=== PATIENT | female | born 1965 | race African-American/Black ===

== ENCOUNTER 2021-12-29 12:31 | Emergency (ER) | payer OTHER ==
[2021-12-29 13:16] VITALS: BP 126/55; PULSE 91; RESP 20; TEMP 98.1; BMI 46.5
[2021-12-29] MEDS ORDERED: predniSONE 20 MG TABLET (UD) PO ONE (13:53)
[2021-12-29] MEDS ORDERED: ONDANSETRON *ODT* 4 MG TABLET SL ONE (13:53)
[2021-12-29] MEDS ORDERED: predniSONE 20 MG TABLET (UD) ONE (14:04)
[2021-12-29] MEDS ORDERED: ONDANSETRON *ODT* 4 MG TABLET ONE (14:05)
[2021-12-29] MEDS: ALBUTEROL SO4 2.5/IPRATROPIUM 0.5 INH SOL 3 ML VIAL.NEB. NEB SCH ×4 (14:20→15:46)
[2021-12-29 16:10] LABS: BASO % 0.3 % (0-2.0); EOS % 1.3 % (0-4.5); HEMOGLOBIN 12.7 GM/dL (10.7-15.3); LYMPH % 29.2 % (8-40); MCH 27.1 pg (25.7-33.7); MCHC 32.6 g/dl (32.0-36.0); MEAN PLT VOLUME 7.3 fl (7.5-11.1); MONO % 4.4 % (3.8-10.2); NEUT % 64.8 % (42.8-82.8); PLATELET COUNT 283 10^3/uL (134-434); RDW 14.5 % (11.6-15.6)
[2021-12-29 16:32] LABS: CALCIUM 8.8 mg/dL (8.5-10.1)
[2021-12-29 16:33] LABS: ALBUMIN 3.8 g/dl (3.4-5.0); MAGNESIUM 1.8 mg/dL (1.8-2.4)
[2021-12-29 16:36] LABS: CREATININE 0.9 mg/dL (0.55-1.3)
[2021-12-29 16:38] LABS: BILIRUBIN,TOTAL 0.6 mg/dL (0.2-1)
== END 2021-12-29 17:09 | disposition home or self-care (01) ==
LOC: JER 12:31
PROC: 3E0F7GC Introduction of Other Therapeutic Substance into Respiratory Tract, Via Natural or Artificial Opening (ICD-10-PCS; principal; 2021-12-29)
DX: J45.901 Unspecified asthma with (acute) exacerbation (principal)
CPT/HCPCS: 0241U-QW; 36415; 71046-TC-FY; 80053; 83690; 83735; 84484; 85025; 93005; 93010; 99285-25; Q0162